=== PATIENT | male | born 2000 | race Caucasian/White ===

== ENCOUNTER 2025-02-12 12:14 | Emergency (ER) | payer OTHER ==
[~2025-02-12] VITALS: Ht 180.3 cm; Wt 69.9 kg
[2025-02-12] MEDS ORDERED: FLUORESCEIN SODIUM 1 MG STRIP ONE (13:06)
[2025-02-12] MEDS ORDERED: TETRACAINE HCL 0.5% OPHT DROP 2 ML BOTTLE ONE (13:06)
[2025-02-12] MEDS: FLUORESCEIN SODIUM 1 MG STRIP OP ONE (13:29)
[2025-02-12] MEDS: TETRACAINE HCL 0.5% OPHT DROP 2 ML BOTTLE OP ONE (13:29)
[2025-02-12] MEDS ORDERED: KETOROLAC TROMETHAMINE 15 MG INJ ONE (13:30)
[2025-02-12] MEDS: KETOROLAC TROMETHAMINE 15 MG INJ IM ONE (13:33)
[2025-02-12] MEDS ORDERED: ERYT3.5O24 LEFTEYE (15:58)
[2025-02-12] MEDS ORDERED: LIDO30AD10 TP (15:58)
[2025-02-12] MEDS ORDERED: CYCL5TAB PO (15:58)
[2025-02-12] MEDS ORDERED: IBUP-1955 PO (15:58)
[2025-02-12 16:18] VITALS: BP 123/78; TEMP 98.8; O2SAT 98
== END 2025-02-12 16:06 | disposition home or self-care (01) ==
LOC: ER 12:14
DX: S46.911A Strain of unspecified muscle, fascia and tendon at shoulder and upper arm level, right arm, initial encounter (principal); S20.212A Contusion of left front wall of thorax, initial encounter; S05.02XA Injury of conjunctiva and corneal abrasion without foreign body, left eye, initial encounter; R07.89 Other chest pain; Z60.2 Problems related to living alone; V43.52XA Car driver injured in collision with other type car in traffic accident, initial encounter; Y93.89 Activity, other specified; Y92.488 Other paved roadways as the place of occurrence of the external cause; Y99.8 Other external cause status
CPT/HCPCS: 99284; 71101; 73030; 96372; J1885; A4606; A4663